=== PATIENT | male | born 1975 | race Caucasian/White ===

== ENCOUNTER 2016-03-05 06:31 | Emergency (ER) | payer SELFPAY ==
[~2016-03-05 06:31] MED LIST: IPRASOL INH; MONT10TA2 PO; PRED20 PO; PRED5TAB PO; VENTAER INH
[2016-03-05] MEDS ORDERED: RESP: ALBUTEROL 2.5 MG/IPRATROPIUM 0.5 MG NEB (PRN) ONE (06:38)
[2016-03-05 06:45] LABS: BASOPHIL # 0.1 TH/MM3 (0-0.2); BASOPHIL % 2.3 % (0.0-2.0); EOSINOPHIL # 0.3 TH/MM3 (0-0.4); EOSINOPHIL % 4.3 % (0.0-4.0); HEMATOCRIT 48.1 % (39.0-51.0); HEMO FLAGS DIFF FINAL; LYMPH % 32.2 % (9.0-44.0); MEAN CELL VOLUME 87.4 FL (80.0-100.0); MEAN CORPUSCULAR HEMOGLOBIN 29.3 PG (27.0-34.0); MEAN CORPUSCULAR HGB CONC 33.6 % (32.0-36.0); MONO % 15.2 % (0.0-8.0); PLATELET COUNT 211 TH/MM3 (150-450); RED CELL DISTRIBUTION WIDTH 12.9 % (11.6-17.2); WHITE BLOOD COUNT 6.4 TH/MM3 (4.0-11.0)
[2016-03-05] MEDS ORDERED: methylPREDNISolone SOD SUCC 125 MG/2 ML VIAL IVP ONE (06:45)
[2016-03-05] MEDS ORDERED: SODIUM CHLORIDE 0.9% FLUSH 5 ML FLUSH IVF PRN (06:45)
--- NOTE | 2016-03-05 06:45 | PD ---
HPI Chief Complaint: short of breath Time Seen by Provider: 06:37 Travel History International Travel<30 days: No Contact w/Intl Traveler<30days: No Traveled to known affect area: No History of Present Illness HPI 40-year-old male with history of asthma presents to the emergency department 2 hours of severe shortness of breath. Patient has history of tobacco use/ smoker. Patient occasionally uses supplemental oxygen. Patient denies any recent febrile illness or productive cough. Patient has limited ability to provide history due to marked shortness of breath. PFSH Past Medical History Narrative Medical Asthma GERD immunizations current tonsillectomy tobacco use nursing notes reviewed Asthma: Yes Blood Disorders: No Cancer: No Cardiovascular Problems: No Chemotherapy: No Diminished Hearing: No Endocrine: No Gastrointestinal Disorders: Yes Genetic Disorder: No GERD: Yes Genitourinary: No Hiatal Hernia: No Immune Disorder: No Musculoskeletal: No Neurologic: No Psychiatric: No Reproductive: No Respiratory: Yes Immunizations Current: Yes Radiation Therapy: No Thyroid Disease: No Past Surgical History AICD: No Arteriovenous Shunt: No Insulin Pump: No Joint Replacement: No Pacemaker: No Tonsillectomy: Yes Other Surgery: Yes (NO SX) Social History Alcohol Use: Yes (RARE) Tobacco Use: Yes (1/2 pack daily 25 years) Substance Use: No Allergies-Medications (Allergen,Severity, Reaction): Coded Allergies: Aspirin (Verified Adverse Reaction, Severe, ASTHMA EXACERBATION, 03/05/16) Reported Meds & Prescriptions Reported Meds & Active Scripts Active Prednisone 20 Mg Tab 20 Mg PO BID 5 Days Proair Hfa 8.5 GM Inh (Albuterol Sulfate) 90 Mcg/Act Aer 2 Puff INH Q4-6H PRN 108 mcg/actuation Azithromycin 500 Mg Tab 500 Mg PO DAILY Reported Ventolin Hfa 18 GM Inh (Albuterol Sulfate) 90 Mcg/Act Aer 2 Puff INH Q4H PRN Duoneb (Ipratropium-Albuterol Neb) 0.5-2.5 Mg/3 Ml Neb 1 Nebule INH Q4HR NEB PRN Singulair (Montelukast Sodium) 10 Mg Tab 10 Mg PO HS Prednisone 5 Mg Tab 5 Mg PO DAILY Review of Systems ROS Limitations: Clinical Condition, Poor Historian Except as stated in HPI: all other systems reviewed are Neg Physical Exam Narrative GENERAL: Well-developed well-nourished male in obvious respiratory discomfort and distress with accessory muscle use. No stridor or hoarseness. Patient is speaking in single word responses. SKIN: Warm and dry. HEAD: Normocephalic. EYES: No scleral icterus. No injection or drainage. ENT: Airway is patent. NECK: Supple, trachea midline. No JVD or lymphadenopathy. CARDIOVASCULAR: Regular rate and rhythm without murmurs, gallops, or rubs. RESPIRATORY: Breath sounds equal bilaterally; bilaterally diminished with expiratory wheeze throughout. No accessory muscle use. GASTROINTESTINAL: Abdomen soft, non-tender, nondistended. MUSCULOSKELETAL: No cyanosis, or edema. BACK: Nontender without obvious deformity. No CVA tenderness. Data Data Last Documented VS Vital Signs Date Time Temp Pulse Resp B/P Pulse Ox O2 Delivery O2 Flow Rate FiO2 03/05/16 08:30 22 97 Nasal Cannula 2 03/05/16 07:15 98.0 150 111/57 Orders Complete Blood Count With Diff (03/05/16 06:37) Basic Metabolic Panel (Bmp) (03/05/16 06:37) Magnesium (Mg) (03/05/16 06:37) Troponin I (03/05/16 06:37) Iv Access Insert/Monitor (03/05/16 06:37) Ecg Monitoring (03/05/16 06:37) Oximetry (03/05/16 06:37) Oxygen Administration (03/05/16 06:37) Chest, Single Ap (03/05/16 06:37) Sodium Chloride 0.9% Flush (Ns Flush) (03/05/16 06:45) Methylprednisolone So Succ Inj (Solumedr (03/05/16 06:45) Albuterol-Ipratropium Neb (Duoneb Neb) (03/05/16 06:45) Albuterol-Ipratropium Neb (Duoneb Neb) (03/05/16 06:38) Magnesium Sulfate 1 Gm Premix (Magnesium (03/05/16 07:00) Sodium Chlor 0.9% 1000 Ml Inj (Ns 1000 M (03/05/16 07:00) Albuterol Neb (Albuterol Neb) (03/05/16 07:30) Electrocardiogram (03/05/16 ) Influenzae A/B Antigen (03/05/16 07:54) Labs Laboratory Tests Test 03/05/16 06:35 White Blood Count 6.4 TH/MM3 Red Blood Count 5.50 MIL/MM3 Hemoglobin 16.1 GM/DL Hematocrit 48.1 % Mean Corpuscular Volume 87.4 FL Mean Corpuscular Hemoglobin 29.3 PG Mean Corpuscular Hemoglobin 33.6 % Concent Red Cell Distribution Width 12.9 % Platelet Count 211 TH/MM3 Mean Platelet Volume 7.9 FL Neutrophils (%) (Auto) 46.0 % Lymphocytes (%) (Auto) 32.2 % Monocytes (%) (Auto) 15.2 % Eosinophils (%) (Auto) 4.3 % Basophils (%) (Auto) 2.3 % Neutrophils # (Auto) 3.0 TH/MM3 Lymphocytes # (Auto) 2.0 TH/MM3 Monocytes # (Auto) 1.0 TH/MM3 Eosinophils # (Auto) 0.3 TH/MM3 Basophils # (Auto) 0.1 TH/MM3 CBC Comment DIFF FINAL Differential Comment Sodium Level 142 MEQ/L Potassium Level 4.2 MEQ/L Chloride Level 108 MEQ/L Carbon Dioxide Level 23.9 MEQ/L Anion Gap 10 MEQ/L Blood Urea Nitrogen 13 MG/DL Creatinine 1.10 MG/DL Estimat Glomerular Filtration 74 ML/MIN Rate Random Glucose 108 MG/DL Calcium Level 8.3 MG/DL Magnesium Level 2.0 MG/DL Troponin I LESS THAN 0.02 NG/ML MDM Medical Decision Making Medical Screen Exam Complete: Yes Emergency Medical Condition: Yes Medical Record Reviewed: Yes (admitted 2005 w status asthmaticus with endotracheal intubation) Differential Diagnosis Exacerbation asthma, pneumonia, pneumothorax, PE, ACS, CHF Narrative Course 40-year-old male presents with acute work of breathing with diffuse expiratory wheezes and diminished breath sounds bilaterally with accessory muscle use with history of asthma. No recent febrile illness or productive cough. @ 6:50 patient's care signed over to oncoming physician Dr Hyde in the process of getting x 3 duonebs and has received solumedrol 125 mg iv --- patient will need admission Diagnosis Primary Impression: Asthma exacerbation Scripts Prednisone 20 Mg Tab20 Mg PO BID 5 Days Ref 0 Prov:Munira Hyde DO 03/05/16 Albuterol 8.5 GM Inh (Proair Hfa 8.5 GM Inh)90 Mcg/Act Aer2 Puff INH Q4-6H PRN ( SHORTNESS OF BREATH) #1 INHALER Ref 0 108 mcg/actuation Prov:Munira Hyde DO 03/05/16 Azithromycin 500 Mg [id number] Mg PO DAILY #5 TAB Ref 0 Prov:Munira Hyde DO 03/05/16 Le Edwards MD Mar 05, 2016 06:45
[2016-03-05] MEDS: RESP: ALBUTEROL 2.5 MG/IPRATROPIUM 0.5 MG NEB (SCH) INH ×3 (06:47→07:00)
[2016-03-05 06:55] VITALS: BP 95/62; PULSE 145; RESP 28; O2SAT 98
[2016-03-05 06:57] LABS: CHLORIDE 108 MEQ/L (98-107); POTASSIUM 4.2 MEQ/L (3.5-5.1); SODIUM (NA) 142 MEQ/L (136-145)
[2016-03-05 07:00] LABS: ANION GAP 10 MEQ/L (5-15); BICARBONATE 23.9 MEQ/L (21.0-32.0); BLOOD UREA NITROGEN 13 MG/DL (7-18)
[2016-03-05] MEDS ORDERED: MAGNESIUM SULFATE 1 GM PREMIX 100 ML IV ONE (07:00)
[2016-03-05] MEDS ORDERED: SODIUM CHLOR 0.9% 1000 ML INJ 1,000 ML IV ONE (07:00)
--- NOTE | 2016-03-05 07:00 | RADHPO ---
EXAM DATE/TIME: 03/05/2016 06:41 [facility] COMPARISON: CHEST SINGLE AP, December 26, 2015, 22:03. INDICATIONS : Shortness of breath. MEDICAL HISTORY : Gastroesophageal reflux disease. Asthma SURGICAL HISTORY : Tonsillectomy. ENCOUNTER: Initial ACUITY: 1 day PAIN SCORE: 0/10 LOCATION: Bilateral chest FINDINGS: A single view of the chest demonstrates the lungs to be symmetrically aerated without evidence of mas s, infiltrate or effusion. There is hyperaeration of the lung rivers. The cardiomediastinal contours are unremarkable. Osseous structures are intact. No significant changes. CONCLUSION: No acute disease. No significant change has occurred. Tirso Cruz MD on March 05, 2016 at 6:58 Board Certified Radiologist. This report was verified electronically.
[2016-03-05 07:04] LABS: GLOMERULAR FILTRATION RATE 74 ML/MIN (>89)
[2016-03-05 07:15] VITALS: BP 111/57; PULSE 150; RESP 24; TEMP 98; O2SAT 97
[2016-03-05] MEDS ORDERED: RESP: ALBUTEROL 2.5MG/0.5ML CONTINUOUS NEB 12-PACK NEB SCH (07:15)
--- NOTE | 2016-03-05 07:33 | PD ---
Physical Exam Date Seen by Provider: Mar 05, 2016 Data Data Last Documented VS Vital Signs Date Time Temp Pulse Resp B/P Pulse Ox O2 Delivery O2 Flow Rate FiO2 03/05/16 08:30 22 97 Nasal Cannula 2 03/05/16 07:15 98.0 150 111/57 Orders Complete Blood Count With Diff (03/05/16 06:37) Basic Metabolic Panel (Bmp) (03/05/16 06:37) Magnesium (Mg) (03/05/16 06:37) Troponin I (03/05/16 06:37) Iv Access Insert/Monitor (03/05/16 06:37) Ecg Monitoring (03/05/16 06:37) Oximetry (03/05/16 06:37) Oxygen Administration (03/05/16 06:37) Chest, Single Ap (03/05/16 06:37) Sodium Chloride 0.9% Flush (Ns Flush) (03/05/16 06:45) Methylprednisolone So Succ Inj (Solumedr (03/05/16 06:45) Albuterol-Ipratropium Neb (Duoneb Neb) (03/05/16 06:45) Albuterol-Ipratropium Neb (Duoneb Neb) (03/05/16 06:38) Magnesium Sulfate 1 Gm Premix (Magnesium (03/05/16 07:00) Sodium Chlor 0.9% 1000 Ml Inj (Ns 1000 M (03/05/16 07:00) Albuterol Neb (Albuterol Neb) (03/05/16 07:30) Electrocardiogram (03/05/16 ) Influenzae A/B Antigen (03/05/16 07:54) Labs Laboratory Tests Test 03/05/16 06:35 White Blood Count 6.4 TH/MM3 Red Blood Count 5.50 MIL/MM3 Hemoglobin 16.1 GM/DL Hematocrit 48.1 % Mean Corpuscular Volume 87.4 FL Mean Corpuscular Hemoglobin 29.3 PG Mean Corpuscular Hemoglobin 33.6 % Concent Red Cell Distribution Width 12.9 % Platelet Count 211 TH/MM3 Mean Platelet Volume 7.9 FL Neutrophils (%) (Auto) 46.0 % Lymphocytes (%) (Auto) 32.2 % Monocytes (%) (Auto) 15.2 % Eosinophils (%) (Auto) 4.3 % Basophils (%) (Auto) 2.3 % Neutrophils # (Auto) 3.0 TH/MM3 Lymphocytes # (Auto) 2.0 TH/MM3 Monocytes # (Auto) 1.0 TH/MM3 Eosinophils # (Auto) 0.3 TH/MM3 Basophils # (Auto) 0.1 TH/MM3 CBC Comment DIFF FINAL Differential Comment Sodium Level 142 MEQ/L Potassium Level 4.2 MEQ/L Chloride Level 108 MEQ/L Carbon Dioxide Level 23.9 MEQ/L Anion Gap 10 MEQ/L Blood Urea Nitrogen 13 MG/DL Creatinine 1.10 MG/DL Estimat Glomerular Filtration 74 ML/MIN Rate Random Glucose 108 MG/DL Calcium Level 8.3 MG/DL Magnesium Level 2.0 MG/DL Troponin I LESS THAN 0.02 NG/ML [facility] Medical Record Reviewed: No Supervised Visit with FABRIZIO: No Interpretation(s) Vital Signs Date Time Temp Pulse Resp B/P Pulse Ox O2 Delivery O2 Flow Rate FiO2 03/05/16 07:15 98.0 150 24 111/57 97 Nasal Cannula 2 03/05/16 06:56 140 28 94 Nasal Cannula 2 03/05/16 06:55 145 28 95/62 98 Aerosol Mask 03/05/16 06:50 136 32 95 Nasal Cannula 2 03/05/16 06:48 95 Nasal Cannula 2 CBC & BMP Diagram 03/05/16 06:35 Last Impressions Chest X-Ray 03/05/16 0637 Signed Impressions: Service Date/Time: Saturday, March 05, 2016 06:41 - CONCLUSION: No acute disease. No significant change has occurred. Tirso Cruz MD Differential Diagnosis Asthma exacerbation, pneumonia, pneumothorax, PE, ACS Narrative Course Patient signed out to me by Dr Edwards at change of shift. Patient pending labs , [facility] treat, admission. Patient is a 40-year-old male who presents to emergency room with complaints of asthma exacerbation. Patient reports that 2 hours prior to presentation to the emergency room, he had increased shortness of breath. Patient reports history of asthma, reports history of asthma exacerbation the past. Patient reports that the he was hospitalized and intubated for asthma exacerbation 11 years ago. Reports no other recent hospitalization. Patient does admit to using his albuterol with no relief of symptoms. Patient reports that he has been coughing , reports dry cough at this time. Denies fevers or chills. Patient does admit to tobacco use. Patient has received 125 mg of IV Solu-Medrol as well as 3 duo nebs and 3 albuterol treatments with minimal relief of symptoms. 1 g of IV magnesium is currently being administered to patient this time. Will place patient on a continuous neb treatment Patient reevaluated, patient feeling a little better at this time. Discussed with patient all the labs and studies, discussed need for admission for continuous nebulizer treatments as well as IV steroids. Patient currently refusing admission at this time. Patient reports that "I always feel like this and I am always short of breath." Patient reports that he cannot miss any does work in adamantly does not want to be admitted to the hospital. Patient reports that he will call his pulmonary doctor for earliest follow-up. Patient understands that he may return to ER at any time for further evaluation of symptoms and/or for admission. Patient reevaluated, patient with decreased wheezing at this time, at bedside, I did try to convince patient to be admitted to hospital as he has received multiple neb treatments with slight resolution of symptoms. patient adamantly refuses admission. 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 Patient understands that he may return to the emergency room at any time for reevaluation of symptoms. AMA: The risks of leaving against medical advice without further evaluation treatment were discussed with the patient. These risks include cardiac dysfunction, cardiac dysrhythmia, possible heart attack, possible stroke or . The patient indicated understanding of these risks and appeared to have the capacity to make this decision. Critical Care Narrative Aggregate critical care time was 30 minutes. Time to perform other separately billable procedures was not included in the critical care time. My time did not include minutes spent treating any other patients simultaneously or on activities that did not directly contribute to the patient's treatment. The services I provided to this patient were to treat and/or prevent clinically significant deterioration that could result in: , decompensation, deterioration I provided critical care services requiring my management, as noted below: Chart data review, documentation time, medication orders and management, vital sign assessments/reviewing monitor data, ordering and reviewing lab tests, ordering and interpreting/reviewing x-rays and diagnostic studies, care of the patient and discussion of the patient with the admitting physicians. Diagnosis Primary Impression: Asthma exacerbation Patient Instructions: General Instructions Departure Forms: Tests/Procedures, Work Release Enter return to work date: Mar 08, 2016 Additional Instruction: Please follow-up with your primary care doctor as soon as possible Please follow-up with a operator automated process soon as possible Return to ER as needed, return to ER symptoms progress or worsen. Med/Other Pt SpecificInfo: Prescription(s) given Scripts Prednisone 20 Mg Tab20 Mg PO BID 5 Days Ref 0 Prov:Munira Hyde DO 03/05/16 Albuterol 8.5 GM Inh (Proair Hfa 8.5 GM Inh)90 Mcg/Act Aer2 Puff INH Q4-6H PRN ( SHORTNESS OF BREATH) #1 INHALER Ref 0 108 mcg/actuation Prov:Munira Hyde DO 03/05/16 Azithromycin 500 Mg [id number] Mg PO DAILY #5 TAB Ref 0 Prov:Munira Hyde DO 03/05/16 Disposition: 07 AGAINST MEDICAL ADVICE Condition: Serious Munira Hyde DO Mar 05, 2016 07:33
[2016-03-05] MEDS: RESP: ALBUTEROL 2.5 MG/3 ML NEB (SCH) INH ×3 (07:40→08:25)
[2016-03-05 07:41] VITALS: O2SAT 95
[2016-03-05] MEDS ORDERED: ALBUAER3 INH (08:20)
[2016-03-05] MEDS ORDERED: AZIT500T2 PO (08:20)
[2016-03-05] MEDS ORDERED: PRED20 PO (08:20)
--- NOTE | 2016-03-05 13:22 | EKG ---
Date Performed: 03/05/2016 Time Performed: 07:37:22 PTAGE: 40 years EKG: Sinus tachycardia Normal ECG except for rate Compared to prior tracing no significant alexandria harman PREVIOUS TRACING : 02/22/2014 15.37 DOCTOR: Andrea Pinon Interpretating Date/Time 03/05/2016 13:17:47
== END 2016-03-05 09:19 | disposition left against medical advice (07) ==
LOC: PHED 06:31
DX: J45.901 Unspecified asthma with (acute) exacerbation (principal); F17.200 Nicotine dependence, unspecified, uncomplicated; K21.9 Gastro-esophageal reflux disease without esophagitis; R00.0 Tachycardia, unspecified
CPT/HCPCS: 71010; 80048; 83735; 84484; 85025; 87804; 93005; 94640; 94664; 96365; 96375; 99291; J2930; J3475; J7030; J7613

== ENCOUNTER 2016-03-19 17:22 | Emergency (ER) | payer SELFPAY ==
[~2016-03-19] VITALS: Ht 175.3 cm; Wt 69.0 kg
[~2016-03-19 17:22] MED LIST changes: +ALBUAER3 INH; +AZIT500T2 PO
[2016-03-19 17:33] VITALS: BP 108/87; PULSE 115; RESP 20; TEMP 97.6; O2SAT 97
[2016-03-19] MEDS ORDERED: methylPREDNISolone SOD SUCC 125 MG/2 ML VIAL IVP ONE (18:00)
[2016-03-19] MEDS ORDERED: SODIUM CHLORIDE 0.9% FLUSH 5 ML FLUSH IVF PRN (18:00)
[2016-03-19 18:03] LABS: AUTOMATED NEUTROPHIL # 4.2 TH/MM3 (1.8-7.7); BASOPHIL % 0.6 % (0.0-2.0); EOSINOPHIL # 0.3 TH/MM3 (0-0.4); EOSINOPHIL % 3.6 % (0.0-4.0); HEMATOCRIT 46.7 % (39.0-51.0); HEMO FLAGS DIFF FINAL; LYMPH % 30.1 % (9.0-44.0); LYMPHOCYTE # 2.2 TH/MM3 (1.0-4.8); MEAN CELL VOLUME 88.4 FL (80.0-100.0); MEAN CORPUSCULAR HEMOGLOBIN 28.9 PG (27.0-34.0); MEAN CORPUSCULAR HGB CONC 32.7 % (32.0-36.0); MONO % 8.4 % (0.0-8.0); NEUT % 57.3 % (16.0-70.0); PLATELET COUNT 219 TH/MM3 (150-450); RED BLOOD COUNT 5.28 MIL/MM3 (4.50-5.90); RED CELL DISTRIBUTION WIDTH 12.9 % (11.6-17.2); WHITE BLOOD COUNT 7.3 TH/MM3 (4.0-11.0)
[2016-03-19] MEDS: RESP: ALBUTEROL 2.5 MG/IPRATROPIUM 0.5 MG NEB (SCH) INH ×3 (18:06→18:10)
--- NOTE | 2016-03-19 18:10 | PD ---
HPI Chief Complaint: Respiratory Symptoms Time Seen by Provider: 17:34 Travel History International Travel<30 days: No Contact w/Intl Traveler<30days: No Traveled to known affect area: No History of Present Illness HPI 40yo M with PMH of asthma presents to the ED with c/o sob for 1 day. States he used his ventolin x3 with little relieved. Denies any fever, chest pain, n/v, abdominal pain, weakness or numbness. Pt was just here on 03/05 for asthma exacerbation and AMA after he felt better. Pt quit smoking 2 weeks ago. Has been intubated for asthma years ago and has frequent ED visits for asthma exacerbation. Feels like his asthma. PFSH Past Medical History Asthma: Yes Blood Disorders: No Cancer: No Cardiovascular Problems: No Chemotherapy: No Diminished Hearing: No Endocrine: No Gastrointestinal Disorders: Yes Genetic Disorder: No GERD: Yes Genitourinary: No Hiatal Hernia: No Immune Disorder: No Musculoskeletal: No Neurologic: No Psychiatric: No Reproductive: No Respiratory: Yes (ASTHMA) Immunizations Current: Yes Radiation Therapy: No Thyroid Disease: No Past Surgical History AICD: No Arteriovenous Shunt: No Insulin Pump: No Joint Replacement: No Pacemaker: No Tonsillectomy: Yes Other Surgery: Yes (NO SX) Social History Alcohol Use: Yes (RARE) Tobacco Use: Yes (1 ppd) Substance Use: No Allergies-Medications (Allergen,Severity, Reaction): Coded Allergies: Aspirin (Verified Adverse Reaction, Severe, ASTHMA EXACERBATION, 03/19/16) Reported Meds & Prescriptions Reported Meds & Active Scripts Active Prednisone 20 Mg Tab 20 Mg PO BID 5 Days Flovent Hfa 12 GM Inh (Fluticasone Propionate) 110 Mcg/Act Inh 2 Puff INH BID Ventolin Hfa 18 GM Inh (Albuterol Sulfate) 90 Mcg/Act Aer 2 Puff INH Q4H PRN Reported Ventolin Hfa 18 GM Inh (Albuterol Sulfate) 90 Mcg/Act Aer 2 Puff INH Q4H PRN Duoneb (Ipratropium-Albuterol Neb) 0.5-2.5 Mg/3 Ml Neb 1 Nebule INH Q4HR NEB PRN Singulair (Montelukast Sodium) 10 Mg Tab 10 Mg PO HS Prednisone 5 Mg Tab 5 Mg PO HS Review of Systems Except as stated in HPI: all other systems reviewed are Neg Physical Exam Narrative GENERAL: 40yo M in mild distress. SKIN: Warm and dry. HEAD: Atraumatic. Normocephalic. EYES: Pupils equal and round. No scleral icterus. No injection or drainage. ENT: No nasal bleeding or discharge. Mucous membranes pink and moist. NECK: Trachea midline. No JVD. CARDIOVASCULAR: Mildly tachycardic. No murmur appreciated. RESPIRATORY: Speaking in complete sentences but poor air entry bilaterally. Very mild expiratory wheezing heard anterior chest. GASTROINTESTINAL: Abdomen soft, non-tender, nondistended. Hepatic and splenic margins not palpable. MUSCULOSKELETAL: No obvious deformities. No clubbing. No cyanosis. No edema. No calf tenderness bilaterally. NEUROLOGICAL: Awake and alert. No obvious cranial nerve deficits. Motor grossly within normal limits. Normal speech. PSYCHIATRIC: Appropriate mood and affect; insight and judgment normal. Data Data Last Documented VS Vital Signs Date Time Temp Pulse Resp B/P Pulse Ox O2 Delivery O2 Flow Rate FiO2 03/19/16 19:54 92 18 102/78 97 Room Air 03/19/16 17:33 97.6 Orders Complete Blood Count With Diff (03/19/16 17:47) Basic Metabolic Panel (Bmp) (03/19/16 17:47) Chest, Single Ap (03/19/16 17:47) Sodium Chloride 0.9% Flush (Ns Flush) (03/19/16 18:00) Methylprednisolone So Succ Inj (Solumedr (03/19/16 18:00) Albuterol-Ipratropium Neb (Duoneb Neb) (03/19/16 18:00) Labs Laboratory Tests Test 03/19/16 17:54 White Blood Count 7.3 TH/MM3 Red Blood Count 5.28 MIL/MM3 Hemoglobin 15.3 GM/DL Hematocrit 46.7 % Mean Corpuscular Volume 88.4 FL Mean Corpuscular Hemoglobin 28.9 PG Mean Corpuscular Hemoglobin 32.7 % Concent Red Cell Distribution Width 12.9 % Platelet Count 219 TH/MM3 Mean Platelet Volume 7.7 FL Neutrophils (%) (Auto) 57.3 % Lymphocytes (%) (Auto) 30.1 % Monocytes (%) (Auto) 8.4 % Eosinophils (%) (Auto) 3.6 % Basophils (%) (Auto) 0.6 % Neutrophils # (Auto) 4.2 TH/MM3 Lymphocytes # (Auto) 2.2 TH/MM3 Monocytes # (Auto) 0.6 TH/MM3 Eosinophils # (Auto) 0.3 TH/MM3 Basophils # (Auto) 0.0 TH/MM3 CBC Comment DIFF FINAL Differential Comment Sodium Level 143 MEQ/L Potassium Level 3.7 MEQ/L Chloride Level 109 MEQ/L Carbon Dioxide Level 26.1 MEQ/L Anion Gap 8 MEQ/L Blood Urea Nitrogen 19 MG/DL Creatinine 0.97 MG/DL Estimat Glomerular Filtration 86 ML/MIN Rate Random Glucose 105 MG/DL Calcium Level 8.2 MG/DL MDM Medical Decision Making Medical Screen Exam Complete: Yes Emergency Medical Condition: Yes Interpretation(s) Laboratory Tests Test 03/19/16 17:54 White Blood Count 7.3 TH/MM3 (4.0-11.0) Red Blood Count 5.28 MIL/MM3 (4.50-5.90) Hemoglobin 15.3 GM/DL (13.0-17.0) Hematocrit 46.7 % (39.0-51.0) Mean Corpuscular Volume 88.4 FL (80.0-100.0) Mean Corpuscular Hemoglobin 28.9 PG (27.0-34.0) Mean Corpuscular Hemoglobin 32.7 % Concent (32.0-36.0) Red Cell Distribution Width 12.9 % (11.6-17.2) Platelet Count 219 TH/MM3 (150-450) Mean Platelet Volume 7.7 FL (7.0-11.0) Neutrophils (%) (Auto) 57.3 % (16.0-70.0) Lymphocytes (%) (Auto) 30.1 % (9.0-44.0) Monocytes (%) (Auto) 8.4 % (0.0-8.0) Eosinophils (%) (Auto) 3.6 % (0.0-4.0) Basophils (%) (Auto) 0.6 % (0.0-2.0) Neutrophils # (Auto) 4.2 TH/MM3 (1.8-7.7) Lymphocytes # (Auto) 2.2 TH/MM3 (1.0-4.8) Monocytes # (Auto) 0.6 TH/MM3 (0-0.9) Eosinophils # (Auto) 0.3 TH/MM3 (0-0.4) Basophils # (Auto) 0.0 TH/MM3 (0-0.2) CBC Comment DIFF FINAL Differential Comment Sodium Level 143 MEQ/L (136-145) Potassium Level 3.7 MEQ/L (3.5-5.1) Chloride Level 109 MEQ/L (98-107) Carbon Dioxide Level 26.1 MEQ/L (21.0-32.0) Anion Gap 8 MEQ/L (5-15) Blood Urea Nitrogen 19 MG/DL (7-18) Creatinine 0.97 MG/DL (0.60-1.30) Estimat Glomerular Filtration 86 ML/MIN (>89) Rate Random Glucose 105 MG/DL (74-106) Calcium Level 8.2 MG/DL (8.5-10.1) Differential Diagnosis Asthma exacerbation vs. PNA vs. Bronchitis Narrative Course 40yo M with history of asthma here with asthma exacerbation. Pt given duonebs x3 and methylprednisolone 60mg IV. Labs reviewed, no leukocytosis. BMP unremarkable. CXR showed no acute disease. Pt reevaluated at bedside and states he no longer feels short of breath. HR 90s and O2 sat 94% on RA. Lungs with clear sounds bilaterally. Pt states he is back to baseline and wants to go home. Return precautions given. Diagnosis Primary Impression: Asthma exacerbation Patient Instructions: General Instructions Departure Forms: Tests/Procedures Additional Instructions: Please follow up with PMD in 3-7 days. Return to the ED if symptoms worsen. Med/Other Pt SpecificInfo: Prescription(s) given Scripts Prednisone 20 Mg Tab20 Mg PO BID 5 Days Ref 0 Prov:Maria VictoriaCeleste 03/19/16 Fluticasone 12 GM Inh (Flovent Hfa 12 GM Inh)110 Mcg/Act Inh2 Puff INH BID #1 INHALER Ref 0 Prov:Maria VictoriaCeleste 03/19/16 Albuterol 18 GM Inh (Ventolin Hfa 18 GM Inh)90 Mcg/Act Aer2 Puff INH Q4H PRN ( SHORTNESS OF BREATH) #1 INHALER Ref 0 Prov:Celeste Irene 03/19/16 Disposition: 01 DISCHARGE HOME Condition: Stable Celeste Irene Mar 19, 2016 18:10
[2016-03-19 18:13] LABS: POTASSIUM 3.7 MEQ/L (3.5-5.1)
[2016-03-19 18:16] LABS: BICARBONATE 26.1 MEQ/L (21.0-32.0)
--- NOTE | 2016-03-19 19:01 | RADHPO ---
EXAM DATE/TIME: 03/19/2016 18:24 [facility] COMPARISON: CHEST SINGLE AP, March 05, 2016, 6:41. INDICATIONS : Short of breath MEDICAL HISTORY : asthma SURGICAL HISTORY : None. ENCOUNTER: Initial ACUITY: 1 day PAIN SCORE: 0/10 LOCATION: Bilateral chest FINDINGS: A single view of the chest demonstrates the lungs to be symmetrically aerated without evidence of mas s, infiltrate or effusion. The cardiomediastinal contours are unremarkable. Osseous structures are intact. CONCLUSION: No acute disease. Shawn Mckeon MD on March 19, 2016 at 18:59 Board Certified Radiologist. This report was verified electronically.
[2016-03-19] MEDS ORDERED: PRED20 PO (19:18)
[2016-03-19] MEDS ORDERED: FLUTI110I INH (19:18)
[2016-03-19] MEDS ORDERED: VENTAER INH (19:18)
[2016-03-19 19:54] VITALS: BP 102/78; PULSE 92; RESP 18; O2SAT 97
== END 2016-03-19 20:02 | disposition home or self-care (01) ==
LOC: PHED 17:22
DX: J45.901 Unspecified asthma with (acute) exacerbation (principal); Z87.891 Personal history of nicotine dependence; K21.9 Gastro-esophageal reflux disease without esophagitis
CPT/HCPCS: 71010; 80048; 85025; 94640; 94664; 96374; 99283; J2930

== ENCOUNTER 2016-07-11 19:51 | Emergency (ER) | payer SELFPAY ==
[~2016-07-11] VITALS: Ht 175.3 cm; Wt 71.6 kg
[~2016-07-11 19:51] MED LIST changes: -ALBUAER3 INH; -AZIT500T2 PO; +FLUTI110I INH
[2016-07-11 19:57] VITALS: BP 114/87; PULSE 89; RESP 18; TEMP 98; O2SAT 98
--- NOTE | 2016-07-11 20:19 | PD ---
HPI Chief Complaint: Foreign Body Time Seen by Provider: 20:10 Travel History International Travel<30 days: No Contact w/Intl Traveler<30days: No Traveled to known affect area: No History of Present Illness HPI 40-year-old male presents to the emergency room for evaluation of foreign body sensation to the left conjunctiva for the past day. Patient states his eye was bothering him so he looked in the mirror and saw a black foreign body. He tried to remove it himself but was unable to. He does not know the exact moment that it entered his eye. Patient believes it may be metal. He had a corneal abrasion with metallic foreign body in the right eye many years ago. He has not seen an sales and marketing engineer for 15 years. He denies photophobia, foreign body sensation over the cornea, changes in visual acuity, pain, or drainage. Patient does not wear contacts. PFSH Past Medical History Asthma: Yes Blood Disorders: No Cancer: No Cardiovascular Problems: No Chemotherapy: No Diminished Hearing: No Endocrine: No Gastrointestinal Disorders: Yes Genetic Disorder: No GERD: Yes Genitourinary: No Hiatal Hernia: No Immune Disorder: No Musculoskeletal: No Neurologic: No Psychiatric: No Reproductive: No Respiratory: Yes (ASTHMA) Immunizations Current: Yes Radiation Therapy: No Thyroid Disease: No Tetanus Vaccination: < 5 Years Influenza Vaccination: No Past Surgical History Surgical History: No Previous Surgery AICD: No Arteriovenous Shunt: No Insulin Pump: No Joint Replacement: No Pacemaker: No Tonsillectomy: Yes Other Surgery: Yes (NO SX) Social History Alcohol Use: Yes (RARE) Tobacco Use: Yes (3 cigs) Substance Use: No Allergies-Medications (Allergen,Severity, Reaction): Coded Allergies: Aspirin (Verified Adverse Reaction, Severe, ASTHMA EXACERBATION, 07/11/16) Reported Meds & Prescriptions Reported Meds & Active Scripts Active Polytrim Opth Drops (Polymyxin/Trimethoprim Sulfate) 10,000-0.1 Unit/Ml-% Soln 1 Drop LEFT EYE Q6HR Reported Ventolin Hfa 18 GM Inh (Albuterol Sulfate) 90 Mcg/Act Aer 2 Puff INH Q4H PRN Duoneb (Ipratropium-Albuterol Neb) 0.5-2.5 Mg/3 Ml Neb 1 Nebule INH Q4HR NEB PRN Singulair (Montelukast Sodium) 10 Mg Tab 10 Mg PO HS Prednisone 5 Mg Tab 5 Mg PO HS Physical Exam Narrative GENERAL: Well-nourished, well-developed male in no acute distress. Afebrile. Ambulatory. SKIN: Focused skin assessment warm/dry. HEAD: Normocephalic. EYES: PERRL, EOMI, no discharge or injection. No scleral icterus. There is mild chemosis of the left eye. Fluorescein staining reveals no corneal ulceration, foreign body, or abrasion. Visual acuity 20/20 bilaterally. Positive red light reflex bilaterally. Lid eversion reveals no foreign body. There is a 1 mm black foreign body in the conjunctiva of the left eye laterally. NECK: Supple, trachea midline. No JVD or lymphadenopathy. CARDIOVASCULAR: Regular rate and rhythm without murmurs, gallops, or rubs. RESPIRATORY: Breath sounds equal bilaterally. No accessory muscle use. PSYCHIATRIC: No delusional thought processes. No hallucinations. Data Data Last Documented VS Vital Signs Date Time Temp Pulse Resp B/P Pulse Ox O2 Delivery O2 Flow Rate FiO2 07/11/16 19:57 98.0 89 18 114/87 98 Orders Proparacaine 0.5% Opth Soln (Alcaine 0.5 (07/11/16 20:30) Polymyxin/Trimethop Opht Soln (Polytrim (07/11/16 20:30) Mandatory Outpatient Referral (07/11/16 20:32) MDM Medical Decision Making Medical Screen Exam Complete: Yes Emergency Medical Condition: Yes Medical Record Reviewed: Yes Differential Diagnosis Corneal abrasion versus foreign body versus conjunctivitis Narrative Course 40-year-old male presents to the emergency room for evaluation of foreign body sensation to the left conjunctiva for the past day. Patient states his eye was bothering him so he looked the mirror and saw a black foreign body. He tried to remove himself but was unable to. He does not know the exact moment that it entered his eye. Physical exam reveals mild chemosis of the left eye. Fluorescein staining reveals no corneal ulceration, foreign body, or abrasion. Visual acuity 20/20 bilaterally. Lid eversion reveals no foreign body. There is a 1 mm black foreign body in the conjunctiva of the left eye laterally. The area was numbed using proparacaine and an 18-gauge needle was used to try to remove the foreign body. This was unsuccessful. Patient was given first dose of Polytrim in the emergency room. He was discharged with prescription for the same. Mandatory outpatient referral placed to ophthalmology for outpatient follow-up. Patient told to return for worsening symptoms. He understands and agrees to plan. Diagnosis Primary Impression: FB in conjunctival sac Qualified Code: T15.12XA - FB in conjunctival sac, left, initial encounter Referrals: [facility] Support Specialist Patient Instructions: Conjunctivitis (ED), General Instructions Additional Instructions: Rest and drink plenty of fluids. Apply ointment as directed. Follow-up with a primary care physician. Return to the emergency room for worsening symptoms. Scripts Polymyxin B-Trimethoprim Opth Drops (Polytrim Opth Drops)10,000-0.1 Unit/Ml-% Soln1 Drop LEFT EYE Q6HR #1 BOTTLE Ref 0 Prov:Le Edwards MD 07/11/16 Disposition: 01 DISCHARGE HOME Condition: Stable Estela Lopez Jul 11, 2016 20:19
[2016-07-11] MEDS ORDERED: PROPARACAINE HCL 0.5% OPHT SOLN 15 ML BTL EACH EYE ONE (20:30)
[2016-07-11] MEDS ORDERED: POLYMYXIN/TRIMETHOPRIM OPHT SOLN 10 ML BTL LEFT EYE ONE (20:30)
[2016-07-11] MEDS ORDERED: POLY10O LEFT EYE (20:43)
== END 2016-07-11 20:45 | disposition home or self-care (01) ==
LOC: PHEFT 19:51
DX: T15.12XA Foreign body in conjunctival sac, left eye, initial encounter (principal); J45.909 Unspecified asthma, uncomplicated; F17.210 Nicotine dependence, cigarettes, uncomplicated; X58.XXXA Exposure to other specified factors, initial encounter; Y93.9 Activity, unspecified; Y92.9 Unspecified place or not applicable; Y99.8 Other external cause status
CPT/HCPCS: 65205

== ENCOUNTER 2017-03-04 08:16 | Emergency (ER) | payer SELFPAY ==
[~2017-03-04] VITALS: Ht 175.3 cm; Wt 68.2 kg
[~2017-03-04 08:16] MED LIST changes: -FLUTI110I INH; +POLY10O LEFT EYE; -PRED20 PO
[2017-03-04 08:27] VITALS: BP 105/82; PULSE 131; RESP 35; TEMP 97.8; O2SAT 96
[2017-03-04 09:50] VITALS: BP 117/78; PULSE 111; RESP 22; TEMP 97.8; O2SAT 100
--- NOTE | 2017-03-04 10:04 | PD ---
HPI Chief Complaint: Respiratory Distress Time Seen by Provider: 09:58 Travel History International Travel<30 days: No Contact w/Intl Traveler<30days: No Traveled to known affect area: No History of Present Illness HPI Patient presents with complaints of shortness of breath and wheezing since last night. Using nebulizers overnight. Denies diarrhea or fever. Positive history of asthma. Nonsmoker. No exposure to tobacco. On arrival nauseous with vomiting. No episodes of vomiting since. PFSH Past Medical History Asthma: Yes Blood Disorders: No Cancer: No Cardiovascular Problems: No Chemotherapy: No Diminished Hearing: No Endocrine: No Gastrointestinal Disorders: Yes Genetic Disorder: No GERD: Yes Genitourinary: No Hiatal Hernia: No Immune Disorder: No Musculoskeletal: No Neurologic: No Psychiatric: No Reproductive: No Respiratory: Yes (asthma) Immunizations Current: Yes Radiation Therapy: No Thyroid Disease: No Tetanus Vaccination: > 5 Years Influenza Vaccination: Yes Past Surgical History AICD: No Arteriovenous Shunt: No Insulin Pump: No Joint Replacement: No Pacemaker: No Tonsillectomy: Yes Other Surgery: Yes (NO SX) Social History Alcohol Use: Yes (RARE) Tobacco Use: Yes (1ppd) Substance Use: No Allergies-Medications (Allergen,Severity, Reaction): Coded Allergies: aspirin (Unverified Adverse Reaction, Severe, ASTHMA EXACERBATION, 03/04/17 ) Reported Meds & Prescriptions Reported Meds & Active Scripts Active Reported Ventolin Hfa 18 GM Inh (Albuterol Sulfate) 90 Mcg/Act Aer 2 Puff INH Q4H PRN Duoneb (Ipratropium-Albuterol Neb) 0.5-2.5 Mg/3 Ml Neb 1 Nebule INH Q4HR NEB PRN Singulair (Montelukast Sodium) 10 Mg Tab 10 Mg PO HS Prednisone 5 Mg Tab 5 Mg PO HS Review of Systems General / Constitutional: No: Fever Eyes: No: Visual changes Cardiovascular: No: Chest Pain or Discomfort Respiratory: Positive: Shortness of Breath, Wheezing Gastrointestinal: Positive: Vomiting, No: Abdominal Pain Genitourinary: No: Dysuria Musculoskeletal: No: Pain Skin: No Rash Neurologic: No: Weakness Psychiatric: No: Depression Endocrine: No: Polydipsia Hematologic/Lymphatic: No: Easy Bruising Physical Exam Narrative GENERAL: Well-nourished, well-developed patient. Resting comfortably SKIN: Focused skin assessment warm/dry. HEAD: Normocephalic. EYES: No scleral icterus. No injection or drainage. NECK: Supple, trachea midline. No JVD or lymphadenopathy. CARDIOVASCULAR: Regular rate and rhythm without murmurs, gallops, or rubs. RESPIRATORY: Decreased right lower lobe with end expiratory wheeze left lower lobe. No accessory muscle use. GASTROINTESTINAL: Abdomen soft, non-tender, nondistended. MUSCULOSKELETAL: No cyanosis, or edema. BACK: Nontender without obvious deformity. No CVA tenderness. Data Data Last Documented VS Vital Signs Date Time Temp Pulse Resp B/P (MAP) Pulse Ox O2 Delivery O2 Flow Rate FiO2 03/04/17 10:46 98.4 109 16 103/64 (77) 98 Room Air Orders Orders Complete Blood Count With Diff (03/04/17 09:59) Chest, Single Ap (03/04/17 ) Methylprednisolone So Succ Inj (Solumedr (03/04/17 11:30) Labs Laboratory Tests Test 03/04/17 10:05 White Blood Count 9.7 TH/MM3 Red Blood Count 5.04 MIL/MM3 Hemoglobin 14.9 GM/DL Hematocrit 44.2 % Mean Corpuscular Volume 87.8 FL Mean Corpuscular Hemoglobin 29.6 PG Mean Corpuscular Hemoglobin Concent 33.7 % Red Cell Distribution Width 12.6 % Platelet Count 196 TH/MM3 Mean Platelet Volume 8.3 FL Neutrophils (%) (Auto) 91.2 % Lymphocytes (%) (Auto) 4.7 % Monocytes (%) (Auto) 1.7 % Eosinophils (%) (Auto) 1.0 % Basophils (%) (Auto) 1.4 % Neutrophils # (Auto) 8.8 TH/MM3 Lymphocytes # (Auto) 0.5 TH/MM3 Monocytes # (Auto) 0.2 TH/MM3 Eosinophils # (Auto) 0.1 TH/MM3 Basophils # (Auto) 0.1 TH/MM3 CBC Comment AUTO DIFF MDM Medical Decision Making Medical Screen Exam Complete: Yes Emergency Medical Condition: Yes Differential Diagnosis Asthma exacerbation, pneumonia, viral syndrome Narrative Course Assessment and plan discussed with patient at bedside. Patient resting comfortably. Per patient headache resolved. Vomiting controlled. Satting 100% . CBC within normal limits Last 72 hours Impressions Chest X-Ray 03/04/17 0000 Signed Impressions: Service Date/Time: Saturday, March 04, 2017 10:14 - CONCLUSION: Normal examination. Aarti Vidales MD Diagnosis Primary Impression: Asthma exacerbation Qualified Codes: J45.901 - Unspecified asthma with (acute) exacerbation Patient Instructions: General Instructions Additional Instructions: Rest fluids and Motrin. Return emergently on some new symptoms. Follow-up with PCP. Med/Other Pt SpecificInfo: Prescription(s) given Scripts Azithromycin (Zithromax Z-Graham) 250 Mg Dspk 250 MG PO DIRECTED for Infection, #1 DSPK 0 Refills 500 MG (2 tabs) day 1, then 1 tab days 2-5. Prov: Raghavendra Harrison MD 03/04/17 Prednisone (21) 10 mg tab Dose Pack (Prednisone (21) 10 mg tab Dose Pack) 10 Mg Pack 10 MG PO DIRECTED for Inflammation, #1 DSPK 0 Refills Prov: Raghavendra Harrison MD 03/04/17 Disposition: 01 DISCHARGE HOME Condition: Good Raghavendra Harrison MD Mar 04, 2017 10:04
[2017-03-04 10:25] LABS: AUTOMATED NEUTROPHIL # 8.8 TH/MM3 (1.8-7.7); BASOPHIL # 0.1 TH/MM3 (0-0.2); BASOPHIL % 1.4 % (0.0-2.0); EOSINOPHIL # 0.1 TH/MM3 (0-0.4); HEMATOCRIT 44.2 % (39.0-51.0); HEMOGLOBIN 14.9 GM/DL (13.0-17.0); LYMPH % 4.7 % (9.0-44.0); LYMPHOCYTE # 0.5 TH/MM3 (1.0-4.8); MEAN CELL VOLUME 87.8 FL (80.0-100.0); MEAN CORPUSCULAR HEMOGLOBIN 29.6 PG (27.0-34.0); MEAN CORPUSCULAR HGB CONC 33.7 % (32.0-36.0); MEAN PLATELET VOLUME 8.3 FL (7.0-11.0); MONO % 1.7 % (0.0-8.0); MONOCYTE # 0.2 TH/MM3 (0-0.9); NEUT % 91.2 % (16.0-70.0); PLATELET COUNT 196 TH/MM3 (150-450); RED BLOOD COUNT 5.04 MIL/MM3 (4.50-5.90); RED CELL DISTRIBUTION WIDTH 12.6 % (11.6-17.2); WHITE BLOOD COUNT 9.7 TH/MM3 (4.0-11.0)
--- NOTE | 2017-03-04 10:25 | RADRPT ---
EXAM DATE/TIME: 03/04/2017 10:14 [facility] COMPARISON: CHEST SINGLE AP, March 19, 2016, 18:24. INDICATIONS : Short of breath MEDICAL HISTORY : asthma SURGICAL HISTORY : None. ENCOUNTER: Initial ACUITY: 1 day PAIN SCORE: 0/10 LOCATION: Bilateral chest FINDINGS: A single view of the chest demonstrates the lungs to be symmetrically aerated without evidence of mas s, infiltrate or effusion. The cardiomediastinal contours are unremarkable. Osseous structures are intact. CONCLUSION: Normal examination. Aarti Vidales MD on March 04, 2017 at 10:22 Board Certified Radiologist. This report was verified electronically.
[2017-03-04 10:46] VITALS: BP 103/64; PULSE 109; RESP 16; TEMP 98.4; O2SAT 98
[2017-03-04] MEDS ORDERED: PRED10PA PO (11:26)
[2017-03-04] MEDS ORDERED: ZITHTAB PO (11:26)
[2017-03-04] MEDS ORDERED: methylPREDNISolone SOD SUCC 125 MG/2 ML VIAL IV PUSH ONE (11:30)
== END 2017-03-04 11:37 | disposition home or self-care (01) ==
LOC: PHED 08:16
DX: J45.901 Unspecified asthma with (acute) exacerbation (principal); R11.2 Nausea with vomiting, unspecified; K21.9 Gastro-esophageal reflux disease without esophagitis; F17.200 Nicotine dependence, unspecified, uncomplicated; Z88.6 Allergy status to analgesic agent; Z79.51 Long term (current) use of inhaled steroids; Z79.899 Other long term (current) drug therapy
CPT/HCPCS: 71045; 85025; 96374; 99284; J2930